=== PATIENT | female | born 1990 | race African-American/Black ===

== ENCOUNTER 2016-07-09 13:54 | Emergency (ER) | payer BC, OTHER ==
--- NOTE | ~2016-07-09 | CR58 ---
[facility] A Service of [facility] RADIOLOGY TEXT RESULTS PATIENT: MARIA GUADALUPE WORRELL LOCATION: SED : [birth year] UNIT #: [id number] AGE: [address]: Nati Easley APRN SEX: F ORDER DR: [id number] [place] [id number] E MR#: [id number] #: [id number] NAME: MARIA GUADALUPE WORRELL : 1990 SEX: F STUDY DATE/TIME: 07/09/2016 13:49 UNIT: SED ROOM: STUDY DESCRIPTION: CR Cervical Spine 2 or 3 Views Attending Physician: Nati Easley A.P.R.N. Ordering Physician: Nati Easley A.P.R.N. Primary Care Physician: Primary Care Physician No MEDICAL IMAGING REPORT This report is preliminary unless electronic signature is present. EXAM Cervical spine, 07/09/2016 HISTORY Neck pain for 1 year. No specific injury. COMPARISON None. FINDINGS 4 views of the cervical spine demonstrate no acute fracture or subluxation. Vertebral body heights and alignment are normal. Prevertebral soft tissues are normal. Atlantoaxial relationship normal. Cervicothoracic junction unremarkable. Disc spaces and facets are unremarkable. IMPRESSION Negative cervical spine. Dictated by... Ender Baca M.D. THIS IS AN ELECTRONICALLY VERIFIED REPORT Ender Baca M.D. at 07/10/2016 8:46 AM GERMAN/abby TD: 07/10/2016 00:35 JOB #: [id number] [facility] A Service of [facility] RADIOLOGY TEXT RESULTS PATIENT: MARIA GUADALUPE WORRELL LOCATION: SED : 91 UNIT #: [id number] AGE: [address]: Nati Easley APRN SEX: F ORDER DR: MEDICAL IMAGING REPORT Page 1 of 1
== END 2016-07-09 14:32 | disposition home or self-care (01) ==
LOC: SED 13:54
DX: M43.6 Torticollis (principal); G40.909 Epilepsy, unspecified, not intractable, without status epilepticus; F17.200 Nicotine dependence, unspecified, uncomplicated
CPT/HCPCS: 72040; 96372; 99283; J1885; J2360